=== PATIENT | male | born 1985 | race Two or more races ===

== ENCOUNTER 2022-11-05 15:23 | Emergency (ER) | payer OTHER ==
[~2022-11-05] VITALS: Ht 182.9 cm; Wt 101.0 kg
[2022-11-05] MEDS ORDERED: IBUPROFEN 400MG TABLET PO ONE (18:00)
[2022-11-05 19:30] VITALS: BP 135/71
[2022-11-05] MEDS ORDERED: IBUP-2028 MT (20:25)
== END 2022-11-05 20:30 | disposition home or self-care (01) ==
LOC: ER 15:43
DX: R51.9 Headache, unspecified (principal); M54.50 Low back pain, unspecified; W19.XXXA Unspecified fall, initial encounter; Y93.89 Activity, other specified; Y92.89 Other specified places as the place of occurrence of the external cause; Y99.8 Other external cause status
CPT/HCPCS: 72100; 99284